=== PATIENT | male | born 1985 | race Caucasian/White ===

== ENCOUNTER 2017-07-20 14:17 | Outpatient (CLI) | payer OTHER ==
--- NOTE | 2017-07-20 16:27 | MRI Report ---
EXAM: RIGHT KNEE MRI WITHOUT CONTRAST EXAM DATE: 07/20/2017 03:05 PM. CLINICAL HISTORY: Right knee pain post running. Stiff. Popping. Medial meniscal tear in 2015. COMPARISON: None. TECHNIQUE: Multiplanar, multisequence T1-weighted and fluid-sensitive sequences of the knee without c ontrast. Other: None. FINDINGS: Bones: No visible fracture. Small intraosseous cyst in the intercondylar spine of the tibia. Small fo cus of marrow edema in the medial margin of the medial tibial condyle. Articular Cartilage: Unremarkable. Medial Meniscus: There is a bucket-handle tear of the medial meniscus with the fragment flipped into the intercondylar notch of the femur, anterior to the ACL attachment. The fragment is derived predomi nantly from the anterior horn and body. There is an oblique undersurface tear of the posterior horn. Lateral Meniscus: The lateral meniscus is intact. Cruciate Ligaments: The anterior and posterior cruciate ligaments are intact. Collateral Ligaments: The medial collateral and lateral collateral ligamentous structures are intact. Tendons: The quadriceps, patellar, semimembranosus, and popliteus tendons are unremarkable. Musculature: No edema or fatty atrophy. Other: No effusion. No popliteal cyst. No loose bodies. The medial and lateral retinacula are intact . The subcutaneous tissues and fat pads are unremarkable. IMPRESSION: 1. Bucket-handle tear of the medial meniscus. Oblique undersurface tear of the posterior horn. 2. Small joint effusion. 3. Small focus of marrow edema in the medial margin of the medial tibial condyle. [facility] MUSCULOSKELETAL RADIOLOGY SECTION Referring Provider Line: [phone] SITE ID: [id number]
== END 2017-07-20 14:18 | disposition home or self-care (01) ==
LOC: DI 14:17
PROVIDERS: ATTEND General Practice
DX: S83.211A Bucket-handle tear of medial meniscus, current injury, right knee, initial encounter (principal); M25.461 Effusion, right knee